=== PATIENT | male | born 1985 | race Caucasian/White ===

== ENCOUNTER 2017-04-03 21:44 | Emergency (ER) | payer OTHER ==
[2017-04-03 21:55] VITALS: BP 146/79
--- NOTE | 2017-04-03 22:19 | ED Physician Documentation ---
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 No SI since then.) Review of Systems Musculoskeletal: denies: Neck pain, Back pain Neurologic: denies: Generalized weakness Psychiatric: denies: Depressed, Suicidal, Homicidal PD PAST MEDICAL HISTORY - Past Medical History GI: Ulcers (several years ago, no recent symptoms.) - Past Surgical History Past Surgical History: No - Present Medications Home Medications: Ambulatory Orders Medication Instructions Recorded Confirmed No Known Home Medications [No 04/03/17 04/03/17 Known Home Medications] - Allergies Allergies/Adverse Reactions: Allergies Allergy/AdvReac Type Severity Reaction Status Date / Time No Known Drug Allergies Allergy Verified 04/03/17 21:50 - Social History Does the pt smoke?: No Smoking Status: Former smoker Does the pt drink ETOH?: Yes Does the pt have substance abuse?: No - Immunizations Immunizations are current?: Yes PD ED PE NORMAL - Vitals Vital signs reviewed: Yes - General General: Alert and oriented X 3, No acute distress - Neuro Neuro: Alert and oriented X 3, No motor deficit, No sensory deficit, Normal speech - Psych Psych: Normal mood, Normal affect Results - Vitals Vitals: Vital Signs - 24 hr 04/03/17 21:50 Temperature 36.3 C L Heart Rate 75 Respiratory 12 Rate Blood Pressure 146/79 H O2 Saturation 97 Oxygen O2 Source Room air PD MEDICAL DECISION MAKING - ED course ED course: He was referred here by his command for a very brief suicidal thoughts he had 8 months ago and there is no ongoing suicidal ideation. No depression ongoing. He is obviously clear for outpatient treatment. Departure - Departure Disposition: 01 Home, Self Care Clinical Impression: Stress reaction Condition: Good Record reviewed to determine appropriate education?: Yes Instructions: ED Stress React Comments: Your blood pressure was elevated today on check in to the emergency department. This does not mean that you have hypertension, it is a common phenomenon to check into the emergency department and have elevated blood pressure. I recommend that you see your primary care physician within the week to have it rechecked when you're feeling better.
== END 2017-04-03 22:26 | disposition home or self-care (01) ==
LOC: ED 21:44
DX: F43.9 Reaction to severe stress, unspecified (principal); R03.0 Elevated blood-pressure reading, without diagnosis of hypertension; Z87.891 Personal history of nicotine dependence
CPT/HCPCS: 99282; 99283